=== PATIENT | male | born 1950 | race Caucasian/White ===

== ENCOUNTER 2020-08-31 08:45 | Inpatient (IN) ==
[2020-08-31 09:16] LABS: Basophils % 0.1 % (0.0-0.8); Hematocrit 35.5 VOL% (42.0-52.0); Hemoglobin 12.4 GM/DL (14.0-18.0); Immature Granulocytes Absolute 0.15 #; Lymphocytes # 0.9 10*3/uL (1.4-4.0); Lymphocytes % 6.2 % (21.2-54.2); Mean Corpuscular HGB Conc 34.9 GM/DL (32-36); Mean Corpuscular Volume 85.3 FL (87-102); Mean Platelet Volume 10.1 FL (9.6-12.0); Monocytes % 4.1 % (1.7-12.7); Neutrophils % 88.6 % (38.7-73.9); Platelet Count 189 T/CUMM (130-400); Red Blood Count 4.16 MC/CUMM (3.8-5.5); Red Cell Distribution Width 12.5 % (9.3-17.3); White Blood Count 14.7 T/CUMM (4-12)
[2020-08-31 09:28] LABS: Partial Thromboplastin Time 28.9 SECS (23.9-33.8)
[2020-08-31 09:35] LABS: Band Neutrophils 8 % (0-10); Lymphocytes 7 % (20-55); Segmented Neutrophils 81 % (50-85); Total Cells Counted 100
[2020-08-31 09:36] LABS: Hypochromasia Slight; Microcytosis 1+; Ovalocytes Slight; Platelet Estimate Adequate
[2020-08-31 09:38] LABS: Albumin 2.7 G/DL (3.4-5.0); Bilirubin,Total 0.8 MG/DL (0.2-1.0); Osmolality,Calculated 277.7 MOS/KG (273-304); Potassium 4.3 MMOL/L (3.5-5.1); Total Protein 6.6 G/DL (6.4-8.3)
[2020-08-31] MEDS ORDERED: SODIUM CHLORIDE 0.9% 1,000 ML IV STA (09:47)
[2020-08-31] MEDS ORDERED: cefTRIAXone 1,000 MG in SODIUM CHLORIDE 0.9% 100 ML IV STA (10:06)
[2020-08-31] MEDS ORDERED: AZITHROMYCIN INJ 500 MG in SODIUM CHLORIDE 0.9% 250 ML IV STA (10:06)
[2020-08-31] MEDS ORDERED: cefTRIAXone 1,000 MG VIAL ONE (10:11)
[2020-08-31] MEDS ORDERED: cefTRIAXone 1,000 MG in SYRINGE 1 EACH IV STA (10:15)
[2020-08-31] MEDS ORDERED: MORPHINE 4 MG/1 ML VIAL IV STA (11:12)
[2020-08-31] MEDS ORDERED: ONDANSETRON 4 MG/2 ML VIAL ONE (11:13)
[2020-08-31] MEDS ORDERED: MORPHINE 4 MG/1 ML VIAL ONE (11:13)
[2020-08-31] MEDS ORDERED: ONDANSETRON 4 MG/2 ML VIAL IV ONE (11:13)
[2020-08-31] MEDS ORDERED: ACETAMINOPHEN 500 MG TABLET ONE (11:15)
[2020-08-31] MEDS ORDERED: DEXTROSE 50% 25 GM/50 ML VIAL IV PRN ×2 (12:06)
[2020-08-31] MEDS ORDERED: POTASSIUM CHLORIDE RIDER 10 MEQ in PREMIX 1 EACH IV PRN (12:06)
[2020-08-31] MEDS ORDERED: MAGNESIUM SULF RIDER 4 GM in PREMIX 1 EACH IV PRN (12:06)
[2020-08-31] MEDS ORDERED: MAGNESIUM SULF RIDER 2 GM in PREMIX 1 EACH IV PRN (12:06)
[2020-08-31] MEDS ORDERED: ONDANSETRON 4 MG/2 ML VIAL IV PRN (12:22)
[2020-08-31] MEDS ORDERED: cefTRIAXone 1,000 MG VIAL IM SCH ×2 (12:30)
[2020-08-31] MEDS ORDERED: ENOXAPARIN 40 MG/0.4 ML SYRINGE ONE (12:34)
[2020-08-31] MEDS: ASCORBIC ACID 500 MG TABLET PO SCH ×2 (12:40→22:00)
[2020-08-31] MEDS: DEXAMETHASONE 4 MG/1 ML VIAL IV SCH (12:40)
[2020-08-31] MEDS: CETIRIZINE 10 MG TABLET PO SCH (12:41)
[2020-08-31] MEDS: INSULIN REGULAR DRIP 100 ML IV SCH (12:57)
[2020-08-31 13:02] LABS: INR 1.1; PT Patient Result 11.3 SECS (9.8-11.9); Partial Thromboplastin Time 28.9 SECS (23.9-33.8)
[2020-08-31 13:24] LABS: Calcium 7.6 MG/DL (8.5-10.1); Osmolality,Calculated 279.2 MOS/KG (273-304); Potassium 4.2 MMOL/L (3.5-5.1)
[2020-08-31 13:33] LABS: ABG Base Excess -5.5 MMOL/L (-2.5-2.5); ABG HCO3 19.9 MMOL/L (20-26); ABG Oxygen Saturation 96.2 % (95-100); ABG PCO2 31.2 MM HG (35-48); ABG PH 7.382 (7.35-7.45); ABG PO2 81.2 MM HG (80-95); ABG TCO2 16.4 MMOL/L (23-27)
[2020-08-31] MEDS: DOXYCYCLINE HYCLATE INJ 100 MG in SODIUM CHLORIDE 0.9% 100 ML IV SCH (14:52)
[2020-08-31] MEDS ORDERED: REMDESIVIR 200 MG in SODIUM CHLORIDE 0.9% 210 ML IV ONE (15:00)
[2020-08-31 16:35] LABS: Calcium 7.9 MG/DL (8.5-10.1); Osmolality,Calculated 276.1 MOS/KG (273-304); Potassium 4.1 MMOL/L (3.5-5.1)
[2020-08-31] MEDS ORDERED: INSULIN GLARGINE 100 UNIT/ML SUBCUT STA (16:55)
[2020-08-31 16:56] LABS: ABG Base Excess -3.5 MMOL/L (-2.5-2.5); ABG HCO3 21.5 MMOL/L (20-26); ABG Oxygen Saturation 95.9 % (95-100); ABG PH 7.383 (7.35-7.45); ABG PO2 78.3 MM HG (80-95); ABG TCO2 17.9 MMOL/L (23-27)
[2020-08-31] MEDS ORDERED: GLUCAGON 1 MG VIAL IM PRN (16:56)
[2020-08-31 17:53] LABS: Calcium 7.7 MG/DL (8.5-10.1); Osmolality,Calculated 276.1 MOS/KG (273-304); Potassium 4.2 MMOL/L (3.5-5.1)
[2020-08-31] MEDS: SODIUM CHLORIDE 0.45% 1,000 ML IV SCH (18:59)
[2020-08-31] MEDS: ENOXAPARIN 40 MG/0.4 ML SYRINGE SUBCUT SCH (22:00)
[2020-08-31] MEDS: carvediloL 25 MG TABLET PO SCH (22:00)
[2020-08-31] MEDS: INSULIN LISPRO 100 UNIT/ML SUBCUT SCH (22:12)
[2020-08-31] MEDS ORDERED: MORPHINE 4 MG/1 ML VIAL IV PRN (22:17)
[2020-08-31 23:08] LABS: ABG Base Excess -2.7 MMOL/L (-2.5-2.5); ABG HCO3 22.1 MMOL/L (20-26); ABG Oxygen Saturation 93.5 % (95-100); ABG PCO2 36.7 MM HG (35-48); ABG PH 7.383 (7.35-7.45); ABG PO2 70.2 MM HG (80-95); ABG TCO2 19.4 MMOL/L (23-27)
[2020-09-01 02:25] LABS: Calcium 7.9 MG/DL (8.5-10.1); Osmolality,Calculated 280.1 MOS/KG (273-304)
[2020-09-01] MEDS: SODIUM CHLORIDE 0.45% 1,000 ML IV SCH ×2 (03:10→10:55)
[2020-09-01 04:19] LABS: Hematocrit 34.2 VOL% (42.0-52.0); Hemoglobin 11.9 GM/DL (14.0-18.0); Immature Granulocytes % 0.7 %; Immature Granulocytes Absolute 0.06 #; Lymphocytes # 0.9 10*3/uL (1.4-4.0); Lymphocytes % 10.1 % (21.2-54.2); Mean Corpuscular HGB Conc 34.8 GM/DL (32-36); Mean Corpuscular Volume 85.5 FL (87-102); Mean Platelet Volume 10.2 FL (9.6-12.0); Monocytes % 5.1 % (1.7-12.7); Neutrophils % 84.1 % (38.7-73.9); Platelet Count 175 T/CUMM (130-400); Red Cell Distribution Width 12.5 % (9.3-17.3); White Blood Count 9.2 T/CUMM (4-12)
[2020-09-01 04:45] LABS: Albumin 2.2 G/DL (3.4-5.0); Bilirubin,Total 0.7 MG/DL (0.2-1.0); Calcium 7.9 MG/DL (8.5-10.1); Osmolality,Calculated 277.2 MOS/KG (273-304); Potassium 4.1 MMOL/L (3.5-5.1); Total Protein 6.4 G/DL (6.4-8.3)
[2020-09-01 04:48] LABS: ABG Base Excess -4.1 MMOL/L (-2.5-2.5); ABG Oxygen Saturation 96.2 % (95-100); ABG PH 7.373 (7.35-7.45); ABG PO2 82.3 MM HG (80-95); ABG TCO2 18.1 MMOL/L (23-27)
[2020-09-01 04:56] LABS: Lymphocytes 7 % (20-55); Segmented Neutrophils 85 % (50-85); Total Cells Counted 100
[2020-09-01 04:57] LABS: Hypochromasia 2+; Platelet Estimate Normal
[2020-09-01] MEDS ORDERED: SODIUM CHLORIDE 0.45% 1,000 ML IV SCH ×2 (05:07→12:00)
[2020-09-01] MEDS: DOXYCYCLINE HYCLATE INJ 100 MG in SODIUM CHLORIDE 0.9% 100 ML IV SCH ×2 (07:16→15:29)
[2020-09-01] MEDS ORDERED: amLODIPine 5 MG TABLET PO SCH (09:00)
[2020-09-01] MEDS: REMDESIVIR 100 MG in SODIUM CHLORIDE 0.9% 100 ML IV SCH (10:35)
[2020-09-01] MEDS: INSULIN LISPRO 100 UNIT/ML SUBCUT SCH ×5 (10:36→21:18)
[2020-09-01] MEDS: DEXAMETHASONE 4 MG/1 ML VIAL IV SCH (10:44)
[2020-09-01] MEDS: cefTRIAXone 1,000 MG in SYRINGE 1 EACH IV SCH (10:44)
[2020-09-01] MEDS: carvediloL 25 MG TABLET PO SCH ×2 (10:45→21:13)
[2020-09-01] MEDS: OLMESARTAN 20 MG TABLET PO SCH (10:45)
[2020-09-01] MEDS: CETIRIZINE 10 MG TABLET PO SCH (10:45)
[2020-09-01] MEDS: ATORVASTATIN 20 MG TABLET PO SCH (10:45)
[2020-09-01] MEDS: ASCORBIC ACID 500 MG TABLET PO SCH ×2 (10:54→21:13)
[2020-09-01] MEDS: ZINC GLUCONATE 50 MG TABLET PO SCH (10:54)
[2020-09-01] MEDS: SODIUM CHLORIDE 0.9% 1,000 ML IV SCH (15:00)
[2020-09-01] MEDS: INSULIN REGULAR DRIP 100 ML IV SCH (19:17)
[2020-09-01] MEDS: ENOXAPARIN 40 MG/0.4 ML SYRINGE SUBCUT SCH (21:18)
[2020-09-02] MEDS: DOXYCYCLINE HYCLATE INJ 100 MG in SODIUM CHLORIDE 0.9% 100 ML IV SCH ×2 (03:31→14:50)
[2020-09-02] MEDS: SODIUM CHLORIDE 0.9% 1,000 ML IV SCH ×2 (03:31→21:04)
[2020-09-02] MEDS ORDERED: ACETAMINOPHEN 325 MG TABLET PO PRN (05:11)
[2020-09-02] MEDS: INSULIN LISPRO 100 UNIT/ML SUBCUT SCH ×4 (10:13→21:03)
[2020-09-02] MEDS: cefTRIAXone 1,000 MG in SYRINGE 1 EACH IV SCH (10:13)
[2020-09-02] MEDS: carvediloL 25 MG TABLET PO SCH ×2 (10:14→21:03)
[2020-09-02] MEDS: ATORVASTATIN 20 MG TABLET PO SCH (10:14)
[2020-09-02] MEDS: ZINC GLUCONATE 50 MG TABLET PO SCH (12:38)
[2020-09-02] MEDS: DEXAMETHASONE 10 MG/1 ML VIAL IV SCH (12:38)
[2020-09-02] MEDS: ASCORBIC ACID 500 MG TABLET PO SCH ×2 (12:38→21:03)
[2020-09-02] MEDS: OLMESARTAN 20 MG TABLET PO SCH (12:38)
[2020-09-02] MEDS: CETIRIZINE 10 MG TABLET PO SCH (12:38)
[2020-09-02] MEDS: REMDESIVIR 100 MG in SODIUM CHLORIDE 0.9% 100 ML IV SCH (12:38)
[2020-09-02] MEDS: INSULIN REGULAR DRIP 100 ML IV SCH (13:40)
[2020-09-02] MEDS: APIXABAN 5 MG TABLET PO SCH (21:03)
[2020-09-03] MEDS: DOXYCYCLINE HYCLATE INJ 100 MG in SODIUM CHLORIDE 0.9% 100 ML IV SCH ×2 (05:54→15:07)
[2020-09-03] MEDS: SODIUM CHLORIDE 0.9% 1,000 ML IV SCH ×2 (05:54→19:20)
[2020-09-03] MEDS: DEXAMETHASONE 10 MG/1 ML VIAL IV SCH (11:06)
[2020-09-03] MEDS: carvediloL 25 MG TABLET PO SCH ×2 (11:06→20:49)
[2020-09-03] MEDS: INSULIN LISPRO 100 UNIT/ML SUBCUT SCH ×4 (11:06→20:50)
[2020-09-03] MEDS: APIXABAN 5 MG TABLET PO SCH ×2 (11:06→20:49)
[2020-09-03] MEDS: OLMESARTAN 20 MG TABLET PO SCH (11:06)
[2020-09-03] MEDS: ATORVASTATIN 20 MG TABLET PO SCH (11:07)
[2020-09-03] MEDS: REMDESIVIR 100 MG in SODIUM CHLORIDE 0.9% 100 ML IV SCH (11:07)
[2020-09-03] MEDS: ASCORBIC ACID 500 MG TABLET PO SCH ×2 (11:07→20:48)
[2020-09-03] MEDS: CETIRIZINE 10 MG TABLET PO SCH (11:07)
[2020-09-03] MEDS: ZINC GLUCONATE 50 MG TABLET PO SCH (11:07)
[2020-09-03] MEDS: cefTRIAXone 1,000 MG in SYRINGE 1 EACH IV SCH (11:07)
[2020-09-03] MEDS: INSULIN REGULAR DRIP 100 ML IV SCH (12:29)
[2020-09-03] MEDS: INSULIN GLARGINE 100 UNIT/ML SUBCUT SCH (20:49)
[2020-09-04] MEDS: SODIUM CHLORIDE 0.9% 1,000 ML IV SCH ×2 (01:15→18:55)
[2020-09-04] MEDS: DOXYCYCLINE HYCLATE INJ 100 MG in SODIUM CHLORIDE 0.9% 100 ML IV SCH ×2 (02:45→15:02)
[2020-09-04 04:43] LABS: Basophils % 0.6 % (0.0-0.8); Eosinophils % 0.1 % (0.00-10.9); Hematocrit 32.9 VOL% (42.0-52.0); Hemoglobin 11.7 GM/DL (14.0-18.0); Immature Granulocytes % 6.2 %; Immature Granulocytes Absolute 0.43 #; Lymphocytes # 1.2 10*3/uL (1.4-4.0); Lymphocytes % 16.7 % (21.2-54.2); Mean Corpuscular HGB Conc 35.6 GM/DL (32-36); Mean Corpuscular Volume 82.3 FL (87-102); Mean Platelet Volume 10.4 FL (9.6-12.0); Monocytes % 8.9 % (1.7-12.7); Neutrophils % 67.5 % (38.7-73.9); Platelet Count 162 T/CUMM (130-400); Red Cell Distribution Width 11.7 % (9.3-17.3)
[2020-09-04 05:12] LABS: Hypochromasia 1+; Lymphocytes 14 % (20-55); Microcytosis 1+; Platelet Estimate Adequate; Segmented Neutrophils 82 % (50-85); Total Cells Counted 100
[2020-09-04 05:20] LABS: Calcium 8.1 MG/DL (8.5-10.1); Osmolality,Calculated 273.1 MOS/KG (273-304); Potassium 3.4 MMOL/L (3.5-5.1)
[2020-09-04] MEDS: INSULIN LISPRO 100 UNIT/ML SUBCUT SCH ×4 (08:38→21:19)
[2020-09-04] MEDS ORDERED: MELATONIN 3 MG TABLET PO PRN (10:10)
[2020-09-04] MEDS ORDERED: DOCUSATE SODIUM 100 MG CAPSULE PO PRN (10:10)
[2020-09-04] MEDS: OLMESARTAN 20 MG TABLET PO SCH (11:00)
[2020-09-04] MEDS: DEXAMETHASONE 10 MG/1 ML VIAL IV SCH (11:21)
[2020-09-04] MEDS: APIXABAN 5 MG TABLET PO SCH ×2 (11:21→21:19)
[2020-09-04] MEDS: carvediloL 25 MG TABLET PO SCH ×2 (11:21→21:19)
[2020-09-04] MEDS: ATORVASTATIN 20 MG TABLET PO SCH (11:21)
[2020-09-04] MEDS: REMDESIVIR 100 MG in SODIUM CHLORIDE 0.9% 100 ML IV SCH (11:21)
[2020-09-04] MEDS: cefTRIAXone 1,000 MG in SYRINGE 1 EACH IV SCH (11:21)
[2020-09-04] MEDS: ZINC GLUCONATE 50 MG TABLET PO SCH (11:21)
[2020-09-04] MEDS: CETIRIZINE 10 MG TABLET PO SCH (11:21)
[2020-09-04] MEDS: ASCORBIC ACID 500 MG TABLET PO SCH ×2 (11:21→21:19)
[2020-09-04] MEDS: INSULIN REGULAR DRIP 100 ML IV SCH (11:43)
[2020-09-04] MEDS: INSULIN GLARGINE 100 UNIT/ML SUBCUT SCH (21:19)
[2020-09-05] MEDS: DOXYCYCLINE HYCLATE INJ 100 MG in SODIUM CHLORIDE 0.9% 100 ML IV SCH ×2 (03:37→14:09)
[2020-09-05 06:01] LABS: Basophils # 0.1 10*3/uL (0.0-0.2); Basophils % 0.6 % (0.0-0.8); Eosinophils % 0.1 % (0.00-10.9); Hematocrit 32.9 VOL% (42.0-52.0); Immature Granulocytes % 7.5 %; Immature Granulocytes Absolute 0.68 #; Lymphocytes # 1.3 10*3/uL (1.4-4.0); Lymphocytes % 13.9 % (21.2-54.2); Mean Corpuscular HGB Conc 36.5 GM/DL (32-36); Mean Corpuscular Volume 81.6 FL (87-102); Mean Platelet Volume 10.3 FL (9.6-12.0); Monocytes % 6.6 % (1.7-12.7); Neutrophils % 71.3 % (38.7-73.9); Platelet Count 179 T/CUMM (130-400); Red Blood Count 4.03 MC/CUMM (3.8-5.5); Red Cell Distribution Width 11.9 % (9.3-17.3); White Blood Count 9.1 T/CUMM (4-12)
[2020-09-05 06:17] LABS: Calcium 8.3 MG/DL (8.5-10.1); Osmolality,Calculated 273.2 MOS/KG (273-304); Potassium 3.6 MMOL/L (3.5-5.1)
[2020-09-05 06:24] LABS: Hypochromasia 1+; Lymphocytes 14 % (20-55); Microcytosis 1+; Platelet Estimate Adequate; Segmented Neutrophils 75 % (50-85); Total Cells Counted 100
[2020-09-05] MEDS: ATORVASTATIN 20 MG TABLET PO SCH (09:20)
[2020-09-05] MEDS: ZINC GLUCONATE 50 MG TABLET PO SCH (09:20)
[2020-09-05] MEDS: carvediloL 25 MG TABLET PO SCH (09:20)
[2020-09-05] MEDS: DEXAMETHASONE 10 MG/1 ML VIAL IV SCH (09:20)
[2020-09-05] MEDS: ASCORBIC ACID 500 MG TABLET PO SCH (09:20)
[2020-09-05] MEDS: APIXABAN 5 MG TABLET PO SCH (09:20)
[2020-09-05] MEDS: OLMESARTAN 20 MG TABLET PO SCH (09:20)
[2020-09-05] MEDS: cefTRIAXone 1,000 MG in SYRINGE 1 EACH IV SCH (09:20)
[2020-09-05] MEDS: CETIRIZINE 10 MG TABLET PO SCH (09:20)
[2020-09-05] MEDS: INSULIN LISPRO 100 UNIT/ML SUBCUT SCH ×3 (11:20→17:43)
[2020-09-05 11:39] VITALS: BP 145/77
[2020-09-05] MEDS: INSULIN REGULAR DRIP 100 ML IV SCH (14:09)
== END 2020-09-05 16:50 | disposition home or self-care (01) | DRG 177 ==
LOC: N.ED 08:45 → SUATTDRO 11:23 → N.EDINP 11:23 → N.2E 09-01 16:14
PROVIDERS: ADMIT Nurse Practitioner Adult Health; ATTEND Internal Medicine